=== PATIENT | female | born 1955 | race Caucasian/White ===

== ENCOUNTER 2017-06-21 15:17 | Emergency (ER) | payer OTHER ==
[2017-06-21 15:43] VITALS: BP 108/66
[2017-06-21] MEDS ORDERED: Levalbuterol 0.63MG/3ML NEB* UNIT OF USE INH ONE (16:10)
[2017-06-21] MEDS ORDERED: Ipratropium 0.5MG/2.5ML NEB* 0.5 MG/2.5 ML NEB.SOLN INH ONE (16:10)
[2017-06-21] MEDS ORDERED: Albuterol 2.5 MG/3 ML NEB.SOL* (0.083%) INH ONE (16:16)
--- NOTE | 2017-06-21 19:31 | UC ---
Nya Bradshaw Thomas, scribed for MeronCuca York, DO on 06/21/17 at 1542 . Respiratory Complaint HPI - HPI Summary HPI Summary: The pt is a 61 y/o F with a Hx of allergies and asthma presenting to [facility] c/o of a worsening of her asthma of the last few weeks but especially in the last three days. The patient describes that two days ago she realized that she wasn t breathing right. Since then, she reports insomnia secondary to her working too hard to breathe. She reports that she is unable to fall asleep comfortably because she wakes up with respiratory complaints. The SOB is alleviated by Benadryl and taking a shower. Pt additionally c/o inability to take a deep breath, pain characterized as bronchiole tightness, and intermittent lightheadedness secondary to her breathing. Pt denies CP, sore throat, ear ache , N/V/D, arthralgia, PATRICK, rash, myalgia, leg swelling, and abd pain. She reports that she has not had problems with her asthma in the last 3 years until now. She reports prior ED visits due to her asthma, but she has never been hospitalized for this. She has taken steroids in the past but doesnt take prednisone well. The pt reports that her PCP Dr. Rivera normally prescribes Asmanex and Xopenex for previous respiratory complaints. In the past, she reports problems with seasonal allergies and difficulty with breathing around certain environments. She has, in the last week cleaned out her basement and is very allergic to dust. She has used albuterol but prefers levalbuterol. She is on Levothyroxine at home. PMHx: seasonal allergies, hypothyroidism, asthma, skin CA. PSHx: skin CA removal. SHx: no smoking, rare alcohol use, no illicit drug use. FHx: DM. - History of Current Complaint Chief Complaint: UCRespiratory Stated Complaint: ASTHMA Hx Obtained From: Patient ?: No Onset/Duration: Lasting Weeks - last few months, Still Present, Worse Since - in the last 3 days Timing: Intermittent Episodes Severity Initially: Moderate Severity Currently: Moderate Pain Intensity: 0 Character: Cough: Nonproductive Aggravating Factors: Allergens Alleviating Factors: OTC Meds - Benadryl Associated Signs And Symptoms: Positive: Dyspnea, Wheezing, Dizziness. Negative : Fever, Chills, Pleuritic Chest Pain, Hemoptysis, Calf Swelling, Edema, URI, Sinus Discomfort Related History: Seasonal Allergies, Similar Episode/Dx as: - prior episodes of asthma - Allergies/Home Medications Allergies/Adverse Reactions: Allergies Allergy/AdvReac Type Severity Reaction Status Date / Time Azithromycin Allergy See Comment Verified 06/21/17 15:28 Penicillins [PCN] Allergy Rash Verified 06/21/17 15:28 Sulfa Antibiotics Allergy Anaphylatic Verified 06/21/17 15:28 Shock Home Medications: Home Medications Levothyroxine Sodium [Synthroid] 100 mcg PO 06/21/17 [History] PMH/Surg Hx/FS Hx/Imm Hx Previously Healthy: No Endocrine History: Thyroid Disease - hypothyroidism Respiratory History: Asthma Other Respiratory History: Allergies - Surgical History Surgical History: Yes Surgery Procedure, Year, and Place: skin CA removed - Family History Known Family History: Positive: Diabetes Negative: Cardiac Disease, Hypertension - Social History Occupation: Employed Full-time Alcohol Use: Rare Substance Use Type: None Smoking Status (MU): Never Smoked Tobacco Review of Systems Constitutional: Negative Skin: Negative Eyes: Negative ENT: Negative Respiratory: Other - POS: inability to take a deep breath, pain characterized as bronchiole tightness Cardiovascular: Negative Gastrointestinal: Negative Genitourinary: Negative Motor: Negative Neurovascular: Negative Musculoskeletal: Negative Neurological: Other - POS: insomnia secondary to difficulty breathing(not orthopnea or pnd), lightheadedness secondary to breathing Psychological: Negative All Other Systems Reviewed And Are Negative: Yes Physical Exam Triage Information Reviewed: Yes Appearance: Well-Appearing, No Pain Distress, Well-Nourished Vital Signs: Initial Vital Signs Temp 96.8 F 06/21/17 15:23 Pulse 68 06/21/17 15:23 Resp 18 06/21/17 15:23 BP 108/66 06/21/17 15:23 Pulse Ox 100 06/21/17 15:23 Vital Signs Reviewed: Yes Eyes: Positive: Conjunctiva Clear. Negative: Discharge ENT: Positive: Hearing grossly normal, Pharynx normal, TMs normal. Negative: Nasal congestion, Tonsillar swelling, Tonsillar exudate, Trismus, Muffled/ hoarse voice Dental Exam: Normal Neck exam: Normal Neck: Positive: Supple, Nontender, No Lymphadenopathy Respiratory: Positive: No respiratory distress, Wheezing - few scattered, Expiration - prolonged at bl bases Cardiovascular: Positive: RRR, No Murmur Musculoskeletal Exam: Normal Neurological: Positive: Alert, Muscle Tone Normal Psychological Exam: Normal Psychological: Positive: Age Appropriate Behavior Skin Exam: Normal Skin: Positive: Other - Warm, dry, normal color Diagnostic Evaluation - Laboratory O2 Sat by Pulse Oximetry: 100 Respiratory Course/Dx - Course Course Of Treatment: The pt is a 61 y/o F with a Hx of asthma presenting to [facility] c/o of a worsening of her asthma of the last few weeks but especially in the last 3 days. The patient describes that two days ago she realized that she wasn t breathing right. Since then, she reports insomnia secondary to her working too hard to breathe. She reports that she is unable to fall asleep comfortably because she wakes up with respiratory complaints. The SOB is alleviated by Benadryl and taking a shower. Pt additionally c/o inability to take a deep breath, pain characterized as bronchiole tightness, and intermittent lightheadedness secondary to her breathing. Pt denies CP, sore throat, ear ache , N/V/D, arthralgia, PATRICK, rash, myalgia, leg swelling, and abd pain. She reports that she has not had problems with her asthma in the last 3 years until now. She reports prior ED visits due to her asthma, but she has never been hospitalized for this. She has taken steroids in the past but doesnt take prednisone well. The pt reports that her PCP Dr. Rivera normally prescribes Asmanex and Xopenex for previous respiratory complaints. In the past, she reports problems with seasonal allergies and difficulty with breathing around certain environments. She has never used albuterol She is on Levothyroxine at home. PMHx: seasonal allergies, hypothyroidism, asthma, skin CA. PSHx: skin CA removal. SHx: no smoking, rare alcohol use, no illicit drug use. FHx: DM. She is satting 100 on RA. She was given a nebulizer treatment at [facility] of Albuterol. Patient is diagnosed with asthma. Patient will be discharged home with follow up by PCP in two weeks She was also instructed how she can better breathe deeply. Patient will be prescribed Levalbuterol and mometazone. Patient is agreeable to this plan. - Differential Dx/Diagnosis Differential Diagnosis/HQI/PQRI: Asthma, Bronchitis, Lower Resp Infection Provider Diagnoses: Asthma Discharge - Discharge Plan Condition: Stable Disposition: HOME Prescriptions: Levalbuterol 0.63MG/3ML NEB* [Xopenex 0.63MG/3ML NEB*] 0.63 mg INH Q6H PRN #1 box PRN Reason: Sob/Wheezing Levalbuterol HFA INHALER* [Xopenex Hfa Inhaler*] 1 puff INH Q4H PRN #1 mdi PRN Reason: Shortness Of Breath Mometasone 110 MCG MDI * [Asmanex 110 MCG MDI *] 1 puff INH DAILY #1 mdi Patient Education Materials: Levalbuterol (By breathing), Mometasone (By breathing), Asthma (ED) Referrals: Jodi Rivera MD [Primary Care Provider] - 2 Weeks (Follow up in 2 weeks as planned. Follow up sooner if symptoms worsen or new symptoms develop.) The documentation as recorded by the Nya peterson Thomas accurately reflects the service I personally performed and the decisions made by , Cuca Chance DO.
== END 2017-06-21 17:10 | disposition home or self-care (01) ==
LOC: UCEAST 15:17
DX: J45.909 Unspecified asthma, uncomplicated (principal); E03.9 Hypothyroidism, unspecified; Z88.3 Allergy status to other anti-infective agents; Z88.0 Allergy status to penicillin; Z88.2 Allergy status to sulfonamides
CPT/HCPCS: 99212; G0463; J7615; J7644

== ENCOUNTER 2017-07-07 19:54 | Emergency (ER) | payer OTHER ==
[2017-07-07] MEDS ORDERED: Mometasone 220 MCG MDI INH SCH (22:00)
[2017-07-07 22:28] VITALS: BP 110/84
--- NOTE | 2017-07-07 22:41 | ED ---
Nya Bardshaw Thomas, scribed for Paolo Cook MD on 07/07/17 at 2054 . Shortness of Breath - HPI Summary HPI Summary: The pt is a 61 y/o F with a Hx of asthma accompanied by her and BIBA c/ o an episode of SOB that lasted about 10 minutes today at 19:30. When EMS arrived, she was put on oxygen which seemed to alleviate her SOB. She reports that she has not had problems with her asthma in the last five years until two weeks ago. She made a visit to [facility] [place] on 06/21/[address] Chance, who prescribed her Xopenex and Asmanex. The patient filled her Asmanex and has been taking it since; however, her insurance denied the Xopenex. Multiple times during the examination she expresses frustration that her Xopenex has not been approved. She notes that her SOB has been building in the last two weeks and especially in the last three days. She says that this SOB is not alleviated by her Asmanex. She also complains of insomnia secondary to shortness of breath and a cough. She was unable to take Flovent for an unclear reason. PMHx: asthma , thyroid disease. PSHx: skin cancer removal. SHx: no smoking, rare alcohol use , no illicit drug use. FHx: DM. - History of Current Complaint Chief Complaint: EDShortnessOfBreath Time Seen by Provider: 07/07/17 20:28 Hx Obtained From: Patient, Family/Crab Fisher - in the room Onset/Duration: Lasting Weeks - onset two weeks ago, Worse Since - last three days and especially today Timing: Constant Dyspnea At: Rest - although she speaks in full sentences Aggrevating Factors: Nothing Alleviating Factors: Nothing Associated Signs & Symptoms: Cough (Nonproductive) Related History: Similar Episode - She has a Hx of asthma - Allergy/Home Medications Allergies/Adverse Reactions: Allergies Allergy/AdvReac Type Severity Reaction Status Date / Time Azithromycin Allergy See Comment Verified 06/21/17 15:28 Penicillins [PCN] Allergy Rash Verified 06/21/17 15:28 Sulfa Antibiotics Allergy Anaphylatic Verified 06/21/17 15:28 Shock PMH/Surg Hx/FS Hx/Imm Hx Previously Healthy: No Endocrine/Hematology History: Reports: Hx Thyroid Disease - hypo Respiratory History: Reports: Hx Asthma - Cancer History Cancer Type, Location and Year: skin ca - Surgical History Surgery Procedure, Year, and Place: skin CA removed - Immunization History Date of Tetanus Vaccine: UTD Date of Influenza Vaccine: NO Infectious Disease History: No Infectious Disease History: Denies: Traveled Outside the [place] in Last 30 Days - Family History Known Family History: Positive: Diabetes Negative: Cardiac Disease, Hypertension - Social History Alcohol Use: Rare Substance Use Type: Reports: None Smoking Status (MU): Never Smoked Tobacco Review of Systems Negative: Fever Positive: Shortness Of Breath - episode of severe SOB, but progressively worsening since onset two weeks ago, Cough All Other Systems Reviewed And Are Negative: Yes Physical Exam Triage Information Reviewed: Yes Vital Signs On Initial Exam: Initial Vitals Temp Pulse Resp BP Pulse Ox 98.2 F 72 17 102/82 99 07/07/17 20:06 07/07/17 20:06 07/07/17 20:06 07/07/17 20:06 07/07/17 20:06 Vital Signs Reviewed: Yes Appearance: Positive: Well-Appearing, No Pain Distress, Well-Nourished Skin: Positive: Warm, Skin Color Reflects Adequate Perfusion, Dry Head/Face: Positive: Normal Head/Face Inspection Eyes: Positive: Normal ENT: Positive: Normal ENT inspection Neck: Positive: Supple, Nontender Respiratory/Lung Sounds: Positive: Clear to Auscultation, Breath Sounds Present Cardiovascular: Positive: RRR Abdomen Description: Positive: Nontender, Soft Bowel Sounds: Positive: Present Musculoskeletal: Positive: Normal Neurological: Positive: Normal Psychiatric: Positive: Normal, Affect/Mood Appropriate - Penny Coma Scale Coma Scale Total: 15 Diagnostics - Vital Signs Vital Signs Temp Pulse Resp BP Pulse Ox 07/07/17 20:06 98.2 F 72 17 102/82 99 - Laboratory Lab Statement: Any lab studies that have been ordered have been reviewed, and results considered in the medical decision making process. Course/Dx - Course Course Of Treatment: Ms. Zaira Wiseman was improved by the time she arrived here and was D/C'd with a steroid inhaler. - Diagnoses Provider Diagnoses: Asthma exacerbation Discharge - Discharge Plan Condition: Stable Disposition: HOME Patient Education Materials: Asthma (ED) Referrals: Jodi Rivera MD [Primary Care Provider] - 5 Days Additional Instructions: Follow up with Dr. Rivera in 3-5 days. Return to the emergency department if you develop any new or worsening symptoms. The documentation as recorded by the Nya peterson Thomas accurately reflects the service I personally performed and the decisions made by me, Paolo Cook MD.
--- NOTE | 2017-07-10 11:29 | UC ---
Progress - Progress Note Progress Note: Received phone call from pharmacy that Asmaenx was not covered by insurance. Exchanged for Flovent with the same instructions.
== END 2017-07-07 22:27 | disposition home or self-care (01) ==
LOC: ED 19:54
DX: J45.901 Unspecified asthma with (acute) exacerbation (principal); R05 Cough; R06.02 Shortness of breath
CPT/HCPCS: 99283